=== PATIENT | female | born 1975 | race Caucasian/White ===

== ENCOUNTER 2024-01-12 14:55 | Emergency (ER) | payer MEDICAID ==
[~2024-01-12] VITALS: Ht 167.6 cm; Wt 150.0 kg
[2024-01-12 17:28] VITALS: BP 130/82; PULSE 72; RESP 16; TEMP 98.8; O2SAT 99
== END 2024-01-12 17:30 | disposition home or self-care (01) ==
LOC: ER 14:56
DX: I89.0 Lymphedema, not elsewhere classified (principal); M79.89 Other specified soft tissue disorders; M79.661 Pain in right lower leg
CPT/HCPCS: 73590; 93971; 99284